=== PATIENT | female | born 1990 | race Caucasian/White ===

== ENCOUNTER 2018-11-22 12:49 | Emergency (ER) | payer OTHER ==
--- NOTE | 2018-11-22 14:05 | RAD ---
EXAM: Chest PA and lateral: HISTORY: Cough. Chills. Patient is 5 1/2 months . COMPARISON: None FINDINGS: Heart: Normal cardiac silhouette Aorta: Unremarkable Pulmonary vessels: Normal Costophrenic angles: Costophrenic angles are clear. Lungs: No consolidation or masses. Pneumothorax: No pneumothorax Osseous structures: No osseous abnormalities IMPRESSION: No acute cardiopulmonary process.
--- NOTE | 2018-11-22 15:21 | ULT ---
EXAM: Bilateral lower extremity venous duplex: Deep veins evaluated with color Doppler, spectral analysis, and compression. INDICATIONS: Bilateral lower extremity pain and edema. FINDINGS: Deep veins interrogated include common femoral vein, femoral vein, popliteal vein, and post erior tibial vein. These veins show normal compression and blood flow. No evidence of DVT. IMPRESSION: Negative Bilateral venous duplex exam.
== END 2018-11-22 16:14 | disposition home or self-care (01) ==
LOC: ERS 12:49
DX: J06.9 Acute upper respiratory infection, unspecified (principal); O99.512 Diseases of the respiratory system complicating pregnancy, second trimester; Z3A.22 22 weeks gestation of pregnancy
CPT/HCPCS: 71046; 93970

== ENCOUNTER 2019-03-04 05:30 | Inpatient (IN) | payer OTHER ==
[~2019-03-04 05:30] MED LIST: Butorphanol Tartrate 1 MG/ML VIAL SLOW IVP PRN; Docusate 100 MG CAP PO PRN; HYDROcodone/Acetaminophen 5/325 mg Tablet PO PRN; Ibuprofen 800 MG TAB PO PRN; Lidocaine 1% (PF) 30 ML VIAL SC PRN; NS / Oxytocin 40 units/1000ml 1,000 ML IV PRN; NS w/ Oxytocin 10 units 500 ML IV SCH; Ondansetron PF 4 MG/2 ML Vial IVP PRN; Promethazine HCl 25 MG/ML VIAL IM PRN; Zolpidem Tartrate 5 MG TAB PO PRN; hydrALAZINE 20 MG/ML VIAL SLOW IVP PRN
[2019-03-04 06:38] VITALS: BMI 40.3
[2019-03-04 07:47] LABS: Hemoglobin 11.7 g/dL (12.0-16.0); Mean Corpuscular HGB CONC 34.3 g/dL (32.0-36.0); Mean Corpuscular Hemoglobin 27.8 pg (27.0-31.0); Mean Platelet Volume 8.5 fL (7.4-10.4); Platelet Count 226 thou/uL (130-400); Red Blood Cell (RBC) Count 4.23 mill/uL (4.20-5.40); White Blood Cell (WBC) Count 8.3 thou/uL (4.8-10.8)
[2019-03-04 07:55] LABS: Bilirubin Negative (Negative); Blood, Urine Negative (Negative); Clarity Clear (Clear); Glucose, Urine (Dipstick) Normal (Negative); Leukocyte Negative Leu/uL (Negative); Nitrite Negative (Negative); Protein, Urine (Dipstick) Negative (Neg-Trace); RBC/HPF 0-3 HPF (0-3); Urobilinogen Normal mg/dL (Less than 2); WBC/HPF 0-3 HPF (0-3)
[2019-03-04 08:02] LABS: Bacteria/HPF 1+ HPF (None Seen)
[2019-03-04 08:32] LABS: HBSAg Index 0.17 S/CO (0-0.99); Hep B Surf Ag Non-Reactive S/CO (NonReactive); Syphilis Antibody Nonreactive (Nonreactive); Syphilis Antibody Index 0.05 S/CO (<1.00 Non-Reactive)
[2019-03-04 09:13] LABS: AST (SGOT) 36 U/L (5-34)
[2019-03-04 09:14] LABS: ALT (SGPT) 33 U/L (8-55)
[2019-03-04] MEDS ORDERED: Fentanyl 4 mcg/Bup 0.1% Cadd 100 ML ONE ×2 (13:28→20:50)
[2019-03-04] MEDS ORDERED: Lidocaine 1.5%/Epinephrine 1:200,000 5 ML AMPUL IJ ONE (13:29)
[2019-03-04] MEDS ORDERED: Promethazine HCl 25 MG/ML VIAL IM PRN (14:39)
[2019-03-04] MEDS ORDERED: diphenhydrAMINE 50 MG/ML VIAL IVP PRN (14:39)
[2019-03-04] MEDS ORDERED: Naloxone HCl 0.4 mg/ml Vial IVP PRN ×2 (14:39)
[2019-03-04] MEDS ORDERED: ePHEDrine/0.9% NaCl/PF SYRINGE 50 mg/10 ml SLOW IVP PRN (14:39)
[2019-03-04] MEDS ORDERED: Lactated Ringer's 500 ML IV PRN (14:39)
[2019-03-04] MEDS ORDERED: Ondansetron PF 4 MG/2 ML Vial IVP PRN (14:39)
[2019-03-04] MEDS ORDERED: Communication Order-Pharmacy FS SCH (14:45)
[2019-03-04] MEDS: Lactated Ringer's 1,000 ML IV SCH (14:46)
[2019-03-04] MEDS: Fentanyl 4 mcg/Bupivacaine 0.1% Cassette 100 ML EPIDURAL SCH ×2 (15:41→20:54)
[2019-03-05] MEDS: Acetaminophen 325 MG TAB PO PRN (03:54)
[2019-03-05] MEDS ORDERED: Fentanyl 4 mcg/Bup 0.1% Cadd 100 ML ONE ×2 (03:56→09:24)
[2019-03-05] MEDS: Fentanyl 4 mcg/Bupivacaine 0.1% Cassette 100 ML EPIDURAL SCH ×2 (04:01→09:32)
[2019-03-05] MEDS ORDERED: Bupivacaine/Epinephrine 0.25% 30 ML VIAL ONE (09:00)
[2019-03-05] MEDS ORDERED: Bupivacaine 0.25% HCL 30 ML VIAL ONE (09:00)
[2019-03-05] MEDS ORDERED: Misoprostol 200 MCG TAB ONE (10:32)
[2019-03-05] MEDS ORDERED: Bicitra 30 ML UDCUP ONE (13:10)
[2019-03-05] MEDS ORDERED: Oxytocin 10 UNITS/ML VIAL ONE ×2 (13:40→14:41)
[2019-03-05] MEDS ORDERED: ePHEDrine/0.9% NaCl/PF SYRINGE 50 mg/10 ml ONE (13:40)
[2019-03-05] MEDS ORDERED: PHENYLEPHRINE-NS 100 MCG/ML 10 ML SYRINGE ONE (13:40)
[2019-03-05] MEDS ORDERED: Ondansetron PF 4 MG/2 ML Vial ONE (13:40)
[2019-03-05] MEDS ORDERED: Lidocaine 2% MPF 10 ML AMP (For Epidural Use) ONE (13:41)
[2019-03-05] MEDS ORDERED: Fentanyl 100 MCG/2 ML VIAL ONE (14:24)
[2019-03-05] MEDS ORDERED: Ketamine 50 MG/ML (10ML VIAL) ONE (14:34)
[2019-03-05] MEDS ORDERED: Midazolam HCl 2 mg/2 ml Vial ONE (14:34)
[2019-03-05] MEDS ORDERED: Clindamycin/D5W 900 mg/50 ml Premix Bag ONE (15:01)
[2019-03-05] MEDS ORDERED: NS / Oxytocin 40 units/1000ml 1,000 ML ONE (15:02)
[2019-03-05] MEDS ORDERED: hydrALAZINE 20 MG/ML VIAL SLOW IVP PRN (15:23)
[2019-03-05] MEDS ORDERED: Ondansetron PF 4 MG/2 ML Vial IVP PRN ×2 (15:23→15:51)
[2019-03-05] MEDS ORDERED: Lanolin Ointment 7 GM TUBE TOP PRN (15:23)
[2019-03-05] MEDS ORDERED: Simethicone Chewable 80 MG TAB PO PRN (15:23)
[2019-03-05] MEDS ORDERED: diphenhydrAMINE 25 MG CAP PO PRN (15:23)
[2019-03-05] MEDS ORDERED: Acetaminophen 1,000 MG in Premix Bag 1 BAG IVPB SCH (15:30)
[2019-03-05] MEDS ORDERED: Promethazine HCl 25 MG/ML VIAL IM PRN (15:51)
[2019-03-05] MEDS ORDERED: Naloxone HCl 0.4 mg/ml Vial IV PRN (15:51)
[2019-03-05] MEDS ORDERED: Naloxone HCl 0.4 mg/ml Vial IVP PRN ×2 (15:51)
[2019-03-05] MEDS ORDERED: diphenhydrAMINE 50 MG/ML VIAL IVP PRN (15:51)
[2019-03-05] MEDS ORDERED: Promethazine HCl 25 MG SUPP PR PRN (15:51)
[2019-03-05] MEDS ORDERED: Communication Order-Pharmacy FS SCH (16:00)
[2019-03-05] MEDS ORDERED: Promethazine HCl 25 MG/ML VIAL ONE (16:06)
[2019-03-05] MEDS ORDERED: Ketorolac Tromethamine 30 MG/ML VIAL ONE (16:16)
[2019-03-05] MEDS: Ketorolac Tromethamine 30 MG/ML VIAL IVP PRN (16:17)
[2019-03-05] MEDS ORDERED: Morphine 4 MG/ML VIAL SLOW IVP PRN (16:52)
[2019-03-05] MEDS ORDERED: Ketorolac Tromethamine 30 MG/ML VIAL IVP SCH (17:00)
[2019-03-05] MEDS ORDERED: Morphine 4 MG/ML VIAL SLOW IVP SCH (17:00)
[2019-03-05] MEDS: Ampicillin/Sulbactam 3 GM in Sodium Chloride 0.9% 100 ML IVPB SCH (21:03)
[2019-03-05] MEDS ORDERED: Ibuprofen 800 MG TAB PO SCH (22:00)
[2019-03-05] MEDS: Lactated Ringer's 1,000 ML IV SCH (23:47)
[2019-03-05] MEDS: Ferrous Sulfate 325 MG TAB PO SCH (23:49)
[2019-03-05] MEDS: Docusate Calcium (SURFAK) 240 MG CAP PO SCH (23:50)
[2019-03-06] MEDS: Lactated Ringer's 1,000 ML IV SCH ×5 (00:54→21:15)
[2019-03-06] MEDS: Ampicillin/Sulbactam 3 GM in Sodium Chloride 0.9% 100 ML IVPB SCH ×4 (03:03→21:00)
[2019-03-06] MEDS: Ketorolac Tromethamine 30 MG/ML VIAL IVP PRN ×2 (03:15→10:26)
[2019-03-06 05:57] LABS: Hemoglobin 10.2 g/dL (12.0-16.0); Mean Corpuscular HGB CONC 33.3 g/dL (32.0-36.0); Mean Corpuscular Hemoglobin 27.7 pg (27.0-31.0); Mean Corpuscular Volume 83.4 fL (78.0-98.0); Mean Platelet Volume 8.1 fL (7.4-10.4); Platelet Count 213 thou/uL (130-400); RBC Distribution Width 13.5 % (11.5-14.5); Red Blood Cell (RBC) Count 3.66 mill/uL (4.20-5.40); White Blood Cell (WBC) Count 18.7 thou/uL (4.8-10.8)
[2019-03-06] MEDS: Ferrous Sulfate 325 MG TAB PO SCH ×2 (08:34→22:03)
[2019-03-06] MEDS ORDERED: Adacel (T-DAP) 0.5 ML SYRINGE IM ONE (09:00)
[2019-03-06] MEDS: Docusate Calcium (SURFAK) 240 MG CAP PO SCH ×2 (10:26→21:16)
[2019-03-06] MEDS: Prenatal Vitamin 1 TAB PO SCH (10:26)
--- NOTE | 2019-03-06 13:43 | OP ---
DATE OF PROCEDURE: 03/05/2019 I was present and scrubbed to assist the primary low-transverse with Dr. Delia Baig. See her note for full details. Job ID: [id number]
[2019-03-06] MEDS ORDERED: Ibuprofen 800 MG TAB PO SCH (16:15)
[2019-03-06 20:59] LABS: #Eosinphils 0.1 thou/uL (0.0-0.7); #Lymphocytes 1.2 thou/uL (1.20-3.40); #Monocytes 0.6 thou/uL (0.11-0.59); #Neutrophils 16.5 thou/uL (1.40-6.50); %Basophils 0.2 % (0.0-1.0); %Eosinophils 0.4 % (0.0-10.0); %Lymphocytes 6.5 % (21.0-51.0); %Monocytes 3.2 % (0.0-10.0); %Neutrophils 89.7 % (42.0-75.0); Hemoglobin 9.8 g/dL (12.0-16.0); Mean Corpuscular HGB CONC 33.6 g/dL (32.0-36.0); Mean Corpuscular Volume 83.4 fL (78.0-98.0); Mean Platelet Volume 7.7 fL (7.4-10.4); Platelet Count 239 thou/uL (130-400); RBC Distribution Width 13.5 % (11.5-14.5); Red Blood Cell (RBC) Count 3.49 mill/uL (4.20-5.40); White Blood Cell (WBC) Count 18.4 thou/uL (4.8-10.8)
[2019-03-06] MEDS: Ampicillin 2 GM in Sodium Chloride 0.9% 100 ML IVPB SCH (21:13)
[2019-03-06] MEDS: Ibuprofen 800 MG TAB PO SCH (21:15)
[2019-03-07] MEDS: Ampicillin 2 GM in Sodium Chloride 0.9% 100 ML IVPB SCH ×5 (03:00→21:29)
[2019-03-07] MEDS: Lactated Ringer's 1,000 ML IV SCH (05:41)
[2019-03-07] MEDS: Ibuprofen 800 MG TAB PO SCH ×3 (06:04→21:29)
[2019-03-07 06:17] LABS: #Eosinphils 0.1 thou/uL (0.0-0.7); #Lymphocytes 1.6 thou/uL (1.20-3.40); #Monocytes 0.6 thou/uL (0.11-0.59); #Neutrophils 15.2 thou/uL (1.40-6.50); %Basophils 0.3 % (0.0-1.0); %Eosinophils 0.8 % (0.0-10.0); %Lymphocytes 9.2 % (21.0-51.0); %Monocytes 3.5 % (0.0-10.0); %Neutrophils 86.3 % (42.0-75.0); Mean Corpuscular HGB CONC 33.8 g/dL (32.0-36.0); Mean Corpuscular Hemoglobin 28.2 pg (27.0-31.0); Mean Corpuscular Volume 83.5 fL (78.0-98.0); Mean Platelet Volume 7.8 fL (7.4-10.4); Platelet Count 213 thou/uL (130-400); RBC Distribution Width 13.5 % (11.5-14.5); Red Blood Cell (RBC) Count 3.18 mill/uL (4.20-5.40); White Blood Cell (WBC) Count 17.7 thou/uL (4.8-10.8)
[2019-03-07] MEDS: Prenatal Vitamin 1 TAB PO SCH (08:29)
[2019-03-07] MEDS: Ferrous Sulfate 325 MG TAB PO SCH ×2 (08:39→16:50)
[2019-03-07] MEDS: Docusate Calcium (SURFAK) 240 MG CAP PO SCH ×2 (11:10→21:29)
[2019-03-08] MEDS: Ampicillin 2 GM in Sodium Chloride 0.9% 100 ML IVPB SCH ×2 (03:36→09:42)
[2019-03-08] MEDS: Lactated Ringer's 1,000 ML IV SCH ×2 (03:57→07:20)
[2019-03-08] MEDS: Acetaminophen 325 MG TAB PO PRN ×3 (04:00→09:42)
[2019-03-08] MEDS: Ibuprofen 800 MG TAB PO SCH (05:30)
[2019-03-08 07:21] LABS: #Eosinphils 0.2 thou/uL (0.0-0.7); #Lymphocytes 1.8 thou/uL (1.20-3.40); #Monocytes 0.5 thou/uL (0.11-0.59); #Neutrophils 10.4 thou/uL (1.40-6.50); %Basophils 0.3 % (0.0-1.0); %Eosinophils 1.5 % (0.0-10.0); %Lymphocytes 14.2 % (21.0-51.0); %Monocytes 3.5 % (0.0-10.0); %Neutrophils 80.5 % (42.0-75.0); Hemoglobin 9.6 g/dL (12.0-16.0); Mean Corpuscular HGB CONC 33.4 g/dL (32.0-36.0); Mean Corpuscular Hemoglobin 27.7 pg (27.0-31.0); Mean Platelet Volume 7.4 fL (7.4-10.4); Platelet Count 290 thou/uL (130-400); RBC Distribution Width 13.4 % (11.5-14.5); Red Blood Cell (RBC) Count 3.45 mill/uL (4.20-5.40); White Blood Cell (WBC) Count 12.9 thou/uL (4.8-10.8)
[2019-03-08 08:58] VITALS: TEMP 98.3
[2019-03-08 09:16] VITALS: BP 157/90
[2019-03-08] MEDS: Ferrous Sulfate 325 MG TAB PO SCH (09:42)
[2019-03-08] MEDS: Docusate Calcium (SURFAK) 240 MG CAP PO SCH (09:42)
[2019-03-08] MEDS: Prenatal Vitamin 1 TAB PO SCH (10:14)
--- NOTE | 2019-03-08 10:50 | OP ---
DATE OF PROCEDURE: 03/05/2019 PREOPERATIVE DIAGNOSES: 1. A 29-year-old, G2, P0-0-1-0 at 38 and 4 week gestation, admitted for induction of labor for gestational hypertension. Negative evaluation for preeclampsia. 2. GBS negative. POSTOPERATIVE DIAGNOSES: 1. A 29-year-old, G2, P0-0-1-0 at 38 and 4 week gestation, admitted for induction of labor for gestational hypertension. Negative evaluation for preeclampsia. 2. GBS negative. 3. Failed Pitocin induction with arrest of descent after pushing for 2 hours. 4. Chorioamnionitis. 5. Live-born male with a nuchal cord x2 around the neck tight. PROCEDURE PERFORMED: Primary low-transverse section. STATISTICAL GENETICIST: Cecile Kaye MD ANESTHESIA: An epidural with re-dose combination. SPECIAL MEDICATIONS: Ancef with the addition of clindamycin at the finding of chorioamnionitis. CLINICAL HISTORY: This patient is a 29-year-old, G2, P0-0-1-0, who was scheduled for an induction of labor by Pitocin for history of gestational hypertension. The patient had mild blood pressures at her later office visit. She had an otherwise unremarkable care and workup for preeclampsia was negative on several blood work evaluations. She was admitted the day of 03/04 and was started on Pitocin. She made cervical change after amniotomy and clear fluid, 2 to 3 cm dilated. However, she stayed at 3 cm and had a category II tracing with intermittent decelerations and variables. Her protracted course had a combination of inconsistent Pitocin administration for tracing issues. She continued to dilate to 7 cm and had a prolonged time at 7 cm as she had exemplified at 3 cm. She then progressed to an anterior lip that the rehab nursing tech noted was stretchy and began to push at anterior lip in +2 station. She had an epidural, which was adequate for pain control after being replaced by anesthesia. The patient pushed for 2 hours and was noted to have a swollen anterior lip at that time with a significant amount of caput when checked by the physician. The decision was made to go for a primary low-transverse section given her protracted course and the tracing, which at that time was showing minimal variability and intermittent late decelerations. The risks, benefits, and possible complications as well as alternatives were discussed with the patient and the patient proceeded to the operating room, where her anesthesia was redosed and after testing for adequate anesthesia, the procedure ensued as follows. DESCRIPTION OF PROCEDURE: The patient was taken to the operating room, where her epidural was redosed with spinal anesthetic. She was prepped and draped in the usual sterile position at [facility] and was tilted in the leftward tilt. After testing for adequate anesthesia, an incision was made over the lower abdomen in a Pfannenstiel manner and this was carried down to the fascia. The fascia was nicked in the midline and extended out bilaterally with sharp dissection. The Aldair clamps x2 were used to elevate the rectus muscles off the fascia and in similar fashion, the pyramidalis and rectus muscles were elevated off the inferior border. The muscles were then in the midline and the peritoneum was breached high above the bladder and extended with a combination of sharp and blunt dissection. Once the opening was extended, the bladder blade was placed and the bladder flap was created to reflect the bladder inferiorly. The incision was made with a new scalpel over the lower uterine segment and this was carried down to the amnion. Upon breach of the amnion, a foul odor was noted. This incision was extended and the surgeon's hand was placed into the pelvis and into the uterus and around the head. The head was then lifted and brought to the incision and delivered through the incision. The anterior shoulder followed by the posterior shoulder, followed by the remainder of the infant's body was delivered. The cried spontaneously and then the cord was doubly clamped and cut and the was taken immediately off to the Neonatology Team. The section of the cord was obtained for cord gases, which was noted. The cord gas was noted at 7.295 with a pCO2 of 40.5, bicarb and base excess were not obtained. The placenta was then delivered manually intact with a three-vessel cord and sent to Pathology for evaluation. The uterus was then exteriorized and cleansed of all debris with a dry lap x2. The incision was then brought together with ring forceps clamps and the incision was then closed with a running locking fashion. Hemostasis was difficult in the midline and [id number] sutures were used to reapproximate this midportion. Once the bleeding was stopped, an imbricating suture was used to reinforce this primary closure. The gutters were then cleansed of all debris. The bladder flap was reapproximated and the Seprafilm was placed over the anterior surface. The uterus was then placed back into the abdomen and the peritoneum was closed in a running fashion. The rectus muscles were reapproximated with [id number] sutures and the anterior surface of the rectus muscles were then irrigated copiously. The fascia was then closed in a running fashion and the subcutaneous tissues were then copiously irrigated. Interrupted sutures were used to close the subcutaneous tissue in multiple layers to build up and close the space in the incision. The final closure at the skin was performed with a 3-0 Eduard needle and reinforced with a Steri-Strips and Mastisol and a pressure dressing. The patient tolerated the procedure well and was able to recover in the recovery room in satisfactory condition. All needle, sponge, lap, and instrument counts were correct x2. The patient did receive Ancef telesales professional to the OR. However, clindamycin 900 mg was added to the antibiotic regimen when the chorioamnionitis was found. Interestingly enough, the patient remained afebrile throughout the entirety of her hospital course. She was sent to the recovery room after needle, sponge, lap, and instrument counts were correct x2 at the end of the procedure. There were no other issues surrounding this case. Job ID: [id number]
== END 2019-03-08 11:32 | disposition home or self-care (01) | DRG 786 ==
LOC: L&D 05:54 → 3SW 03-05 17:32
PROVIDERS: ADMIT Obstetrics & Gynecology; ATTEND Obstetrics & Gynecology
PROC: 10D00Z1 Extraction of Products of Conception, Low, Open Approach (ICD-10-PCS; principal; 2019-03-05)
PROC: 3E033VJ Introduction of Other Hormone into Peripheral Vein, Percutaneous Approach (ICD-10-PCS; 2019-03-05)
DX: O76 Abnormality in fetal heart rate and rhythm complicating labor and delivery (principal); O41.1230 Chorioamnionitis, third trimester, not applicable or unspecified; O13.4 Gestational [pregnancy-induced] hypertension without significant proteinuria, complicating childbirth; Z37.0 Single live birth; Z3A.38 38 weeks gestation of pregnancy; O69.1XX0 Labor and delivery complicated by cord around neck, with compression, not applicable or unspecified; O62.1 Secondary uterine inertia
CPT/HCPCS: 36415; 81001; 84450; 84460; 85025; 85027; 86780; 86850; 86900; 86901; 87340; 88307; J0131; J0290; J0295; J0690; J1580; J1885; J2001; J2250; J2270; J2405; J2550; J2590; J3010; J3490; S0020

== ENCOUNTER 2021-02-25 20:48 | Emergency (ER) | payer OTHER ==
[~2021-02-25 20:48] MED LIST changes: -Butorphanol Tartrate 1 MG/ML VIAL SLOW IVP PRN; -Docusate 100 MG CAP PO PRN; -HYDROcodone/Acetaminophen 5/325 mg Tablet PO PRN; -Ibuprofen 800 MG TAB PO PRN; +Iopamidol-370 76% 500 ML 1 ML ONE; -Lidocaine 1% (PF) 30 ML VIAL SC PRN; -NS / Oxytocin 40 units/1000ml 1,000 ML IV PRN; -NS w/ Oxytocin 10 units 500 ML IV SCH; -Ondansetron PF 4 MG/2 ML Vial IVP PRN; -Promethazine HCl 25 MG/ML VIAL IM PRN; -Zolpidem Tartrate 5 MG TAB PO PRN; -hydrALAZINE 20 MG/ML VIAL SLOW IVP PRN
[2021-02-25 21:30] LABS: #Basophils 0.1 thou/uL (0.0-0.2); #Eosinphils 0.2 thou/uL (0.0-0.7); #Lymphocytes 2.6 thou/uL (1.20-3.40); #Monocytes 0.5 thou/uL (0.11-0.59); #Neutrophils 3.9 thou/uL (1.40-6.50); %Basophils 0.8 % (0.0-1.0); %Eosinophils 2.1 % (0.0-10.0); %Lymphocytes 36.4 % (21.0-51.0); %Monocytes 6.7 % (0.0-10.0); Hemoglobin 13.5 g/dL (12.0-16.0); Mean Corpuscular HGB CONC 34.9 g/dL (32.0-36.0); Mean Corpuscular Hemoglobin 28.6 pg (27.0-31.0); Mean Corpuscular Volume 81.8 fL (78.0-98.0); Mean Platelet Volume 7.3 fL (7.4-10.4); Platelet Count 285 thou/uL (130-400); RBC Distribution Width 12.4 % (11.5-14.5); Red Blood Cell (RBC) Count 4.73 mill/uL (4.20-5.40); White Blood Cell (WBC) Count 7.2 thou/uL (4.8-10.8)
[2021-02-25 21:49] LABS: ALT (SGPT) 19 U/L (8-55); AST (SGOT) 18 U/L (5-34); Albumin 4.2 g/dL (3.5-5.0); Alkaline Phosphatase 70 U/L (40-110); Anion Gap 14 mmol/L (10-20); BUN (Urea Nitrogen) 20 mg/dL (7.0-18.7); Bilirubin, Total 0.5 mg/dL (0.2-1.2); Calc. Creatinine Clearance 0 mL/min (70-130); Calcium 9.5 mg/dL (7.8-10.44); Carbon Dioxide 22 mmol/L (22-29); Chloride 105 mmol/L (98-107); Globulin 3.4 g/dL (2.4-3.5); Glucose 98 mg/dL (70-105); Lipase 29 U/L (8-78); Potassium 3.9 mmol/L (3.5-5.1); Protein, Total 7.6 g/dL (6.0-8.3); Sodium 137 mmol/L (136-145)
[2021-02-25 22:06] LABS: BHCG - Serum Negative (NEGATIVE); Pregs Control Background? CLEAR/WHITE (CLR/WHITE); Pregs Control Bar Appear? YES (CONTROL BAR)
== END 2021-02-26 00:30 | disposition home or self-care (01) ==
LOC: ERS 20:48
DX: J84.10 Pulmonary fibrosis, unspecified (principal); R07.89 Other chest pain
CPT/HCPCS: 36415; 71045; 71275; 80053; 83690; 84484; 84703; 85025; 85379; 93005; Q9967

== ENCOUNTER 2022-10-23 21:41 | Observation (INO) | payer BC ==
[2022-10-23 23:36] VITALS: BMI 32.6
[2022-10-24] MEDS ORDERED: Ondansetron PF 4 MG/2 ML Vial IVP PRN (00:30)
[2022-10-24] MEDS ORDERED: Acetaminophen 325 MG TAB PO PRN (00:30)
[2022-10-24] MEDS ORDERED: Ondansetron ODT 4 MG TAB SL PRN (00:30)
[2022-10-24] MEDS ORDERED: hydrALAZINE 20 MG/ML VIAL SLOW IVP PRN (03:47)
[2022-10-24] MEDS ORDERED: Acetaminophen 650 MG Suppository PR PRN (03:47)
[2022-10-24] MEDS ORDERED: Aspirin 81 mg Enteric Coated Tablet PO SCH ×2 (04:15→09:00)
[2022-10-24] MEDS ORDERED: cefTRIAXone\\ROCEPHIN 1 GM in Sodium Chloride 0.9% 100 ML IVPB SCH (18:00)
[2022-10-25 05:24] LABS: #Eosinphils 0.1 thou/uL (0.0-0.7); #Lymphocytes 1.2 thou/uL (1.20-3.40); #Monocytes 0.6 thou/uL (0.11-0.59); #Neutrophils 6.1 thou/uL (1.40-6.50); %Eosinophils 0.8 % (0.0-10.0); %Lymphocytes 15.2 % (21.0-51.0); %Monocytes 7.9 % (0.0-10.0); Hemoglobin 13.1 g/dL (12.0-16.0); Mean Corpuscular HGB CONC 34.6 g/dL (32.0-36.0); Mean Corpuscular Hemoglobin 31.2 pg (27.0-31.0); Mean Corpuscular Volume 90.2 fl (78.0-98.0); Mean Platelet Volume 7.7 fL (7.4-10.4); Platelet Count 212 10x3/uL (130-400); RBC Distribution Width 12.4 % (11.5-14.5); Red Blood Cell (RBC) Count 4.18 mill/uL (4.20-5.40)
[2022-10-25 05:45] LABS: Anion Gap 13 mmol/L (10-20); BUN (Urea Nitrogen) 14 mg/dL (7.0-18.7); Calc. Creatinine Clearance 142 mL/min (70-130); Calcium 8.9 mg/dL (7.8-10.44); Carbon Dioxide 24 mmol/L (22-29); Cardiac Risk 2.7 (Less than 4.5); Chloride 107 mmol/L (98-107); Cholesterol 102 mg/dl (< 200 Desired); Estimated GFR 103; Glucose 95 mg/dL (70-105); HDL Cholesterol 38 mg/dL (>60 Neg Risk); LDL Cholesterol, Calculated 54 mg/dL; Potassium 3.8 mmol/L (3.5-5.1); Sodium 140 mmol/L (136-145); Triglycerides 50 mg/dL (Less than 150)
[2022-10-25] MEDS ORDERED: Aspirin 81 mg Enteric Coated Tablet PO SCH (09:00)
[2022-10-25 11:18] VITALS: TEMP 98
[2022-10-25 12:42] VITALS: BP 100/74
== END 2022-10-25 13:28 | disposition home or self-care (01) ==
LOC: NEURO 23:03
PROVIDERS: ADMIT Hospitalist; ATTEND Hospitalist
DX: R53.1 Weakness (principal); R20.0 Anesthesia of skin; R07.89 Other chest pain; R00.2 Palpitations; I47.1 Supraventricular tachycardia; E78.5 Hyperlipidemia, unspecified; I08.3 Combined rheumatic disorders of mitral, aortic and tricuspid valves; R82.81 Pyuria; Z86.73 Personal history of transient ischemic attack (TIA), and cerebral infarction without residual deficits; Z79.82 Long term (current) use of aspirin; Z79.899 Other long term (current) drug therapy; Z98.891 History of uterine scar from previous surgery
CPT/HCPCS: 36415; 70551; 80048; 80061; 85025; 87086; 93306; 96374; G0378; J0696; J3490